=== PATIENT | female | born 1985 | race African-American/Black ===

== ENCOUNTER 2021-11-01 16:18 | Emergency (ER) | payer MEDICAID, OTHER ==
[~2021-11-01] VITALS: Ht 157.5 cm; Wt 74.0 kg
[2021-11-01 16:24] VITALS: BP 129/65
[2021-11-01 18:49] LABS: CLARITY URINE CLEAR (CLEAR); COLOR URINE ORANGE (YELLOW); KETONES URINE NEGATIVE (NEGATIVE); LEUKOCYTE ESTERASE URINE NEGATIVE (NEGATIVE); NITRITE URINE NEGATIVE (NEGATIVE); OCCULT BLOOD URINE 3+ (NEGATIVE); PROTEIN URINE NEGATIVE (NEGATIVE); SPECIFIC GRAVITY URINE 1.009 (1.005-1.030)
[2021-11-01] MEDS ORDERED: NITR100C MT (20:09)
[2021-11-01 22:10] LABS: HEMATOCRIT 34.1 % (36.0-48.0); HEMOGLOBIN 11.7 g/dL (12.0-16.0); MEAN CORPUSCULAR HEMOGLOBIN 30.2 pg (28.0-32.0); PLATELET 371 x1000/uL (130-400); RED BLOOD CELL COUNT 3.88 mill/uL (4.2-5.4); RED CELL DISTRIBUTION WIDTH 14.2 % (11.6-14.6)
[2021-11-01 22:17] LABS: CHLORIDE 107 mEq/L (98-107)
[2021-11-01 22:27] LABS: B-HCG QUANTITATIVE 552 mIU/mL (<3)
== END 2021-11-01 22:45 | disposition home or self-care (01) ==
LOC: ER 16:18
DX: R10.2 Pelvic and perineal pain (principal); N93.9 Abnormal uterine and vaginal bleeding, unspecified; Z88.0 Allergy status to penicillin; Z88.3 Allergy status to other anti-infective agents; M54.30 Sciatica, unspecified side
CPT/HCPCS: 36415; 76830; 76856; 80053; 81003; 81025; 84702; 85027; 86900; 99284